=== PATIENT | male | born 1960 | race Caucasian/White ===

== ENCOUNTER 2021-03-02 21:42 | Emergency (ER) | payer MEDICARE, MEDICAID ==
[~2021-03-02] VITALS: Ht 177.8 cm; Wt 97.5 kg
[~2021-03-02 21:42] MED LIST: ASPIR 8181 MG PO; CLEOCIN HCL150 MG PO
[2021-03-02] MEDS ORDERED: LIPITOR 20 MG T20 M1 PO (22:02)
[2021-03-02] MEDS ORDERED: BUSPIRONE HCL5 MG PO (22:02)
[2021-03-02] MEDS ORDERED: ZETIA10 MG PO (22:02)
[2021-03-03 00:02] LABS: URINE BILIRUBIN NEGATIVE (Negative); URINE BLOOD NEGATIVE (Negative); URINE CLARITY CLEAR; URINE COLOR YELLOW; URINE GLUCOSE-RANDOM NEGATIVE (Negative); URINE KETONES NEGATIVE (Negative); URINE LEUKOCYTES-REFLEX NEGATIVE (Negative); URINE NITRITE-REFLEX NEGATIVE (Negative); URINE PROTEIN NEGATIVE (Negative); URINE SPECIFIC GRAVITY <= 1.005 (1.005-1.030); URINE UROBILINOGEN 0.2 E.U./dl (0.2-1.0)
[2021-03-03 03:01] VITALS: BP 157/82
== END 2021-03-03 03:02 | disposition home or self-care (01) ==
LOC: M.ERS 21:42
PROVIDERS: Personal Emergency Response Attendant
DX: K40.90 Unilateral inguinal hernia, without obstruction or gangrene, not specified as recurrent (principal); F17.210 Nicotine dependence, cigarettes, uncomplicated; Z79.82 Long term (current) use of aspirin; Z79.899 Other long term (current) drug therapy

== ENCOUNTER → 2021-03-08 | Day surgery (SDC) | payer MEDICARE, MEDICAID ==
[~2021-03-08] MED LIST changes: +BUSPIRONE HCL5 MG PO; +LIPITOR 20 MG T20 M1 PO; +NORCO5 PO; +ZETIA10 MG PO
--- NOTE | 2021-03-10 12:00 | OP ---
[facility] [address] [place] [address] OPERATIVE REPORT Name: NADIA BOLAND Room: [facility]#: [id number] Admission: 03/08/21 Attend Phys: Main Torres Discharge: Date of : 64 Report #: [id number] THIS REPORT FOR: cc: Marilyn Francisco Michelle RNP Patterson, Jonathan D. MD ~ DATE OF SURGERY: 03/08/2021 PREOPERATIVE DIAGNOSIS: Bilateral inguinal hernias. POSTOPERATIVE DIAGNOSIS: Bilateral inguinal hernias. OPERATION: Laparoscopic repair of bilateral inguinal hernias with mesh. SURGEON: Main Torres MD ANESTHESIA: General. ESTIMATED BLOOD LOSS: Minimal. SPECIMENS: None. DESCRIPTION OF PROCEDURE: After informed consent was obtained, the patient was brought to the operating room and placed supine. SCDs were placed and working, preoperative antibiotics were administered, general anesthesia was induced. The abdomen was prepped and draped in the usual sterile fashion. A Shetty catheter was placed. A 10 mm incision was made below the umbilicus. Fascia was incised and a trocar was placed. Pneumoperitoneum was established. Right and left lower quadrant 5 mm trocars were placed under direct vision. The peritoneum at the right ASIS was scored. Peritoneum was then incised and reflected inferiorly. I was able to visualize the cord structures. This was a large indirect inguinal hernia. He had small bowel incarcerated. This was all fully reduced. I was able to fully reduce the large hernia sac. The pubic bone was identified. A large Bard 3DMax mesh was inserted. It was tacked to Mic's ligament with 2 absorbable tacks. I then reapproximated the peritoneum with a tacker as well. There was 100% coverage of the mesh. Attention was then directed to the left side. This was a much smaller indirect inguinal hernia. The peritoneum again was incised at the left ASIS. Peritoneum was incised medially and reflected inferiorly. The pubic bone was again identified. Cord structures were identified and a small hernia sac was reduced. This was indirect. A large Bard 3DMax mesh was inserted. It was tacked to Mic's ligament. The peritoneum was then reapproximated [place] [address] OPERATIVE REPORT Name: NADIA BOLAND Room: [facility]#: [id number] Admission: 03/08/21 Attend Phys: Main Torres Discharge: Date of : 64 Report #: [id number]. The ports were removed under direct vision. The fascia was closed with a [id number] 0 Vicryl. Skin was closed with 4-0 Monocryl. Incisions were dressed with Steri-Strips. COMPLICATIONS: None. DISPOSITION: The patient was taken to recovery in satisfactory condition. <ELECTRONICALLY SIGNED> By: Main Torres MD 03/10/21 1200 [id number] [id number] Torres MD /nt
== END | disposition home or self-care (01) ==
LOC: M.SUR 06:14
PROVIDERS: ATTEND Surgery
DX: K40.20 Bilateral inguinal hernia, without obstruction or gangrene, not specified as recurrent (principal); R10.9 Unspecified abdominal pain; F17.210 Nicotine dependence, cigarettes, uncomplicated; Z98.890 Other specified postprocedural states; Z79.899 Other long term (current) drug therapy; Z20.822 Contact with and (suspected) exposure to COVID-19; Z79.82 Long term (current) use of aspirin